=== PATIENT | female | born 2000 | race Two or more races ===

== ENCOUNTER 2024-07-10 14:30 | Outpatient (RCR) | payer MEDICAID, SELFPAY ==
--- NOTE | 2024-06-24 13:13 | PTNOTE_ITS ---
PT OP Initial Eval Patient Information Outpatient Physical Therapy Treatment Date: 06/24/24 Visit Reasons: LOW BACK PAIN Medical Diagnosis: M54.5 Treatment Dx #1: Back Pain Start of Care: 06/24/24 Date of Onset: 2023 Smoking Status Smoking Status: Never smoker Initial Assessment Subjective: Pt is a 24 y/o female reports of back pain since Mar 2024 after bending her back wrong. Pt notice pain down to her left knee after a few days. No MRI has been done thus far. Pt has limitation with sleeping, sitting, standing, chores, self care, cooking, cleaning, and performing recreational activities. Objective: L/S AROM: all motions are WFL except pain with end range extension Hip PROM: all motions are WNL Hip MMTs: grossly 3+/5 Special Test (+) SLR (+) slump Assessment: Pt demonstrate back pain with mobility deficits consistent with possible disc involvement leading to difficulty with ADLs. Pt will attempt physical therapy if pain persist Pt will be refer back to provider for further consultation. Short Term and Half-Way Goals 1) Increase L/S AROM WNL in 6 wks to be able to perform chores 2) Decrease back pain to 2/10 in 6 wks to be able to resume gym activities 3) Increase core strength WFL in 6 wks to be able to perform recreational activities 4) Increase hip MMTs grossly to 4-/5 in 6 wks to be able to walk more than 30 mins 5) Indep with HEP Treatment Plan 1) Manual Therapy 2) Therapeutic Activities 3) Therapeutic Exercises 4) Modalities (ice, heat, traction) Frequency and Duration: 2 x wk for 6 wks Certification Dates: 06/24/24 to 09/21/24 Procedure Charges OP PT Eval Mod Complex 30 minutes: Yes
--- NOTE | 2024-07-01 13:36 | PT.ODAYNRPT ---
PT Outpatient Daily Note OP Daily Note Outpatient Physical Therapy Treatment Date: 07/01/24 Visit Reasons: LOW BACK PAIN Subjective: Pt's back is okay. No new concerns to report Objective: Please see flow chart for list of ther ex Assessment: tolerate exercises with minimal pain Plan: Continue with PT Length of Time (minutes) of Treatment: 30 Minutes Procedure Charges Therapeutic Exercise 30 minutes: Yes
--- NOTE | 2024-07-03 14:38 | PT.ODAYNRPT ---
PT Outpatient Daily Note OP Daily Note Outpatient Physical Therapy Treatment Date: 07/03/24 Visit Reasons: LOW BACK PAIN Subjective: No changes or new complaints to report. Objective: Please see flow sheet for ther ex list. Assessment: Pt able to replicate repeated lumbar extension with good technique. Plan: Continue with POC. Length of Time (minutes) of Treatment: 30 Minutes Procedure Charges Therapeutic Exercise 30 minutes: Yes
--- NOTE | 2024-07-10 14:58 | PT.ODAYNRPT ---
PT Outpatient Daily Note OP Daily Note Outpatient Physical Therapy Treatment Date: 07/10/24 Visit Reasons: LOW BACK PAIN Subjective: Pt reports low back has been feeling better these last few days. Objective: Please see flow sheet for ther ex list. Assessment: Pt presents in clinic with decrease pain allowing for intervention progression in clinic. Plan: Continue with POC. Length of Time (minutes) of Treatment: 30 Minutes Procedure Charges Therapeutic Exercise 30 minutes: Yes
== END 2024-07-10 23:59 | disposition home or self-care (01) ==
LOC: CPTX 14:30
PROVIDERS: PCP Nurse Practitioner Family; Referring Provider Nurse Practitioner Family; Visit Provider Nurse Practitioner Family
DX: M54.50 Low back pain, unspecified (principal); M25.562 Pain in left knee
CPT/HCPCS: 97110; 97162

== ENCOUNTER 2024-08-10 13:30 | Outpatient (RCR) | payer MEDICAID, SELFPAY ==
--- NOTE | 2024-07-20 15:35 | PT.ODAYNRPT ---
PT Outpatient Daily Note OP Daily Note Outpatient Physical Therapy Treatment Date: 07/20/24 Visit Reasons: low back pain Subjective: Pt re-aggravated her back while at the gym doing hip exercises Objective: Please see flow chart for list of ther ex performed Assessment: tolerate exercises performed in therapy with less pain reported today Plan: Continue with PT Length of Time (minutes) of Treatment: 30 Minutes Procedure Charges Therapeutic Exercise 30 minutes: Yes
--- NOTE | 2024-07-23 15:02 | PTNOTE_ITS ---
PT Outpatient Daily Note OP Daily Note Outpatient Physical Therapy Treatment Date: 07/23/24 Visit Reasons: low back pain Subjective: Pt's back is better today and not as sore. Pt mentioned she continues to lift things around her house improperly leading to increase back pain. 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 Cues to fold ant hip when descending. After a few reps patient was able to perform hip hinge exercises correctly Plan: Continue with PT Length of Time (minutes) of Treatment: 30 Minutes Procedure Charges Therapeutic Exercise 30 minutes: Yes
--- NOTE | 2024-07-27 15:09 | PT.ODAYNRPT ---
PT Outpatient Daily Note OP Daily Note Outpatient Physical Therapy Treatment Date: 07/27/24 Visit Reasons: low back pain Subjective: Pt's back a little sore from yardwork. Overall Pt is doing ok and well Objective: Please see flow chart for list of ther ex performed Assessment: tolerate exercises with minimal pain; require cues to correct hip hinge exercises to achieve right form Plan: Continue with PT Length of Time (minutes) of Treatment: 30 Minutes Procedure Charges Therapeutic Exercise 30 minutes: Yes
--- NOTE | 2024-07-30 14:53 | PT.ODAYNRPT ---
PT Outpatient Daily Note OP Daily Note Outpatient Physical Therapy Treatment Date: 07/30/24 Visit Reasons: low back pain Subjective: Pt's back feels better. Pt does not have any new concerns today. Objective: Please see flow chart for list of ther ex performed Assessment: progress wall hip hinge to partial squat with wand behind the back; patien demonstrate good form with neutral spine. Plan: Continue with PT Length of Time (minutes) of Treatment: 30 Minutes Procedure Charges Therapeutic Exercise 30 minutes: Yes
--- NOTE | 2024-08-07 09:34 | PT.ODAYNRPT ---
PT Outpatient Daily Note OP Daily Note Outpatient Physical Therapy Treatment Date: 08/07/24 Visit Reasons: low back pain Subjective: No new complaints. Objective: Please see flow sheet for ther ex list. Assessment: Pt familiar with rows and low rows exercise, able to replicate with good mechanics keeping spine in neutral. Plan: Continue with pOC. Length of Time (minutes) of Treatment: 30 Minutes Procedure Charges Therapeutic Exercise 30 minutes: Yes
--- NOTE | 2024-08-10 14:26 | PT.ODS1RPT ---
PT OP Progress/Discharge Note Date of Service: 08/10/24 Progress Note/DC Note Progress Note/Discharge Note: DC Note Patient Information Visit Reasons: low back pain Medical Diagnosis: M54.5 Treatment Dx #1: Back Pain Service Discharge Date: 08/10/24 Status Subjective: Pt's back is no better and continues to have pain down her legs. Due to symptoms Pt has limitation with ADLs, chores, lifting, and performing recreational activities. Objective: L/S AROM: all motions are WNL Hip PROM: all motions are WNL Special Test (+) slump (+) SLR Assessment: Pt demonstrate functional L/S mobility, however, no change in pain or radicular symptoms leading to difficulty with ADLs. Pt will no longer benefit from physical therapy due to minimal progress towards goals. Recommend L/S MRI to help rule in/out discogenic involvement. Pt was instructed on HEP last session and educated to continue exercises to maintain overall mobility. Pt performed all exercises safely, thank you for your referrals. Plan: D/C home with HEP and follow up with MD PONCE Recommend L/S MRI Procedure Charges Therapeutic Exercise 30 minutes: Yes
== END 2024-08-10 23:59 | disposition home or self-care (01) ==
LOC: CPTX 13:30
PROVIDERS: PCP Nurse Practitioner Family; Referring Provider Nurse Practitioner Family; Visit Provider Nurse Practitioner Family
DX: M54.50 Low back pain, unspecified (principal); M25.562 Pain in left knee
CPT/HCPCS: 97110